=== PATIENT | female | born 1995 | race Caucasian/White ===

== ENCOUNTER 2020-07-29 07:40 | Inpatient (IN) ==
[2020-07-29] MEDS ORDERED: OXYTOCIN 30 UNITS/500 ML BAG IV PRN (08:11)
[2020-07-29] MEDS ORDERED: DINOPROSTONE 10 MG INSERT PV ONE (08:17)
--- NOTE | 2020-07-29 08:19 | History & Physical Report ---
Date of Service July 29, 2020 Assessment & Plan (1) Gestational diabetes mellitus (GDM): (2) Insulin-dependent diabetes mellitus during , antepartum: 25 yo at 39.2 wks with GDMA2 on insulin VS Afebrile Cervix unfavorable GBS + COVID -19 negative on 07/26 Plan to admit, monitor, labs, Cervical ripening with Cervidil, PCN for GBS (3) Obesity affecting in third trimester, antepartum: (4) GBS (group B Streptococcus carrier), +RV culture, currently : Admission and Anticipated Discharge Date Admission Date: July 29, 2020 History of Present Illness Primary Care Provider: NO PCP 25 yo at 39.2 wks with GDMA2, on insulin Here for scheduled IOL at term No complaints No ctxs/ LOF/VB +FM's Her has been complicated by 1) Obesity 2) GBS+ 3) GDMA2 Allergies Allergy/AdvReac Type Severity Reaction Status Date / Time No Known Allergies Allergy Unverified 07/29/20 08:46 Patient History Surgical History [place] teeth removed Social History Smoking Status: Never smoker Hx Alcohol Use: No Hx Substance Use: No Preferred Language: Tajik Beliefs That Will Affect Care: None marital status: Single Current Living Situation: Significant Other Current Living Situation Comment: lives with boyfriend Other Information That Helps Us Care for You: No Feels Safe at Home: Yes Safety Concerns: Feels Safe At This Time Assistive Devices: None [employer]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 STD Review of Systems All systems reviewed & are unremarkable except as noted in HPI & below Physical Exam Constitutional: WD/WN, vitals as above well developed NAD Gastrointestinal (Abdomen): normal bowel sounds, soft, nontender, no hepatosplenomegaly (Gravid, Luis 7-8 lb) Genitourinary: normal external appearance OB Exam Abdomen: + vertex Manual OB Exam: + cervical dilation 1 cm, + cervical effacement 30% and + station high OB Exam Monitor Tracing: + external uterine monitor used and + category I Results & Data ([place]) Vital Signs (Past 12 Hours) Vital Signs Pulse BP 07/29/20 07:48 94 H 144/69 H
[2020-07-29 08:34] LABS: Hematocrit (blood only) 36.7 % (37-47); Hemoglobin 12.9 g/dL (12.0-16.0); Mean Corpuscular Hemoglobin 30.1 pg (25-34); Mean Corpuscular Hgb Conc 35.1 g/dL (32-36); Mean Corpuscular Volume 85.7 fL (80-100); Platelet Count 197 K/uL (130-400); RDW Coefficient of Variation 13.6 % (11.5-14.5); Red Blood Count 4.28 M/uL (4.2-5.4); White Blood Count 10.32 K/uL (4.8-10.8)
[2020-07-29] MEDS ORDERED: PATIENT'S ALLERGY INFO NEEDS ENTERED SCH (08:45)
--- NOTE | 2020-07-29 08:50 | Obstetrical Progress Note ---
Date of Service July 29, 2020 Assessment & Plan Admission and Anticipated Discharge Date Admission Date: July 29, 2020 Subjective Cervidil is placed at posterior cervix. Results & Data ([facility]) Vital Signs (Past 12 Hours) Vital Signs Temp Pulse Resp BP 07/29/20 07:52 36.9 C 94 H 20 144/69 H 07/29/20 07:48 94 H 144/69 H
[2020-07-29 08:55] LABS: Albumin Level 2.7 gm/dl (3.4-5.0); BUN Creatinine Ratio 14.4 (10-20); Calcium 9.6 mg/dl (8.5-10.1); Creatinine Clr Calc Pharmacy 209.1 ml/min; Est GFR (African American) 146.6; Est GFR (Non-African American) 126.5; Potassium 3.6 mmol/L (3.5-5.1)
[2020-07-29] MEDS ORDERED: PENICILLIN G POTASSIUM 6 MU in DEXTROSE 5% 250 ML IV STA (08:55)
[2020-07-29 08:58] LABS: Albumin Globulin Ratio 0.7 (0.9-2); Bilirubin,Total 0.2 mg/dl (0.2-1); Globulin 3.8 gm/dl (2.5-4.0); Total Protein 6.5 gm/dl (6.4-8.2)
[2020-07-29] MEDS ORDERED: PHARMACY GLYCEMIC MGMT CONSULT PRN (09:22)
[2020-07-29] MEDS ORDERED: GLUCOSE 40% GEL 15 GM TUBE PO PRN (09:30)
[2020-07-29] MEDS ORDERED: CARBOHYDRATES FOR HYPOGLYCEMIA PO PRN (09:30)
[2020-07-29] MEDS ORDERED: GLUCOSE 10 TABS/TUBE PO PRN (09:30)
[2020-07-29] MEDS ORDERED: GLUCAGON FOR INJ 1 MG VIAL SQ PRN (09:30)
[2020-07-29] MEDS ORDERED: DEXTROSE 50% 50 ML SYRINGE IV PRN (09:30)
--- NOTE | 2020-07-29 09:34 | Pharmacy Report ---
Pharmacy Glycemic Short Note 2 - Date of Service July 29, 2020 - Glycemic Short BSG Results (Last 24 hours): 07/29/20 08:23 Glucose 119 H OUTPATIENT ANTIDIABETIC REGIMEN: * NPH 10 units SQ HS ASSESSMENT: * 25 yo at 39.2 wks with GDMA2, on insulin, here for scheduled IOL at term * Begin sliding scale with NovoLog and tighten as needed, continue NPH HS as needed PLAN FOR INPATIENT GLYCEMIC CONTROL: * Basal insulin - NPH * 10 units HS for BSG > 120mg/dl * Bolus insulin * NovoLog per scale Q4H * Goal Range: Low 70 mg/dL - High 120 mg/dL * BSG 120mg/dl or less - 0 units * BSG 121-140 - 1 unit * BSG 141-160 - 2 units * BSG 161-180 - 3 units * BSG 181-200 - 4 units * BSG > 200 - 4 units SQ and call [facility] - will give small IV dose based on BSG PLAN FOR DISCHARGE: * To be determined
[2020-07-29] MEDS: INSULIN ASPART 100 UNITS/ML 3 ML PEN SC SCH ×4 (10:24→22:58)
[2020-07-29] MEDS: LACTATED RINGER'S 1,000 ML IV PRN (17:08)
--- NOTE | 2020-07-29 20:02 | Obstetrical Progress Note ---
Date of Service July 29, 2020 Assessment & Plan Admission and Anticipated Discharge Date Admission Date: July 29, 2020 Subjective Patient is reevaluated She feels ctxs 1-3 min, pain is 5-6/10 No LOF/VB +FM FHR categ I [place]: ctxs 1 -2 min VE; 2cm/ 505/ -3, Cervidil is removed Lab Results 07/29/20 07/29/20 07/29/20 Range/Units 08:23 08:23 08:23 WBC 10.32 (4.8-10.8) K/uL RBC 4.28 (4.2-5.4) M/uL Hgb 12.9 (12.0-16.0) g/dL Hct 36.7 L (37-47) % MCV 85.7 (80-100) fL MCH 30.1 (25-34) pg MCHC 35.1 (32-36) g/dL RDW Std Deviation 43.0 (36.4-46.3) fL RDW Coeff of [place] 13.6 (11.5-14.5) % Plt Count 197 (130-400) K/uL MPV 11.0 H (7.4-10.4) fL Sodium 140 (136-145) mmol/L Potassium 3.6 (3.5-5.1) mmol/L Chloride 110 H (98-107) mmol/L Carbon Dioxide 22 (21-32) mmol/L Anion Gap 8.0 (3-11) BUN 9 (7-18) mg/dl Creatinine 0.59 L (0.6-1.2) mg/dl Est Cr Clr Drug Dosing 209.1 ml/min Est GFR ( Amer) 146.6 Est GFR (Non-Af Amer) 126.5 BUN/Creatinine Ratio 14.4 (10-20) Glucose 119 H (70-99) mg/dl Calcium 9.6 (8.5-10.1) mg/dl Total Bilirubin 0.2 (0.2-1) mg/dl AST 13 L (15-37) U/L ALT 14 (12-78) U/L Alkaline Phosphatase 110 (45-117) U/L Total Protein 6.5 (6.4-8.2) gm/dl Albumin 2.7 L (3.4-5.0) gm/dl Globulin 3.8 (2.5-4.0) gm/dl Albumin/Globulin Ratio 0.7 L (0.9-2) Blood Type A Positive Antibody Screen NEGATIVE Patient desires to eat dinner and continue with IOL Results & Data ([facility]) Vital Signs (Past 12 Hours) Vital Signs Temp Pulse Resp BP 07/29/20 19:17 75 167/87 H 07/29/20 19:16 83 190/102 H 07/29/20 15:16 36.8 C 65 20 131/79 07/29/20 11:50 36.7 C 83 20 141/82 H
[2020-07-29] MEDS: INSULIN HUMAN NPH SC SCH (21:15)
[2020-07-29] MEDS: BUTORPHANOL TARTRATE 1 MG/ML VIAL IV PRN (21:27)
[2020-07-29] MEDS: PENICILLIN G POTASSIUM 3 MU in DEXTROSE 5% 100 ML IV PRN (21:41)
[2020-07-30] MEDS ORDERED: OXYTOCIN 30 UNITS/500 ML BAG IV PRN (01:58)
[2020-07-30] MEDS: PENICILLIN G POTASSIUM 3 MU in DEXTROSE 5% 100 ML IV PRN ×6 (02:03→22:30)
[2020-07-30] MEDS: LACTATED RINGER'S 1,000 ML IV PRN ×4 (02:04→20:04)
[2020-07-30] MEDS: INSULIN ASPART 100 UNITS/ML 3 ML PEN SC SCH ×4 (02:19→18:12)
[2020-07-30] MEDS: BUTORPHANOL TARTRATE 1 MG/ML VIAL IV PRN (02:37)
[2020-07-30] MEDS ORDERED: fentaNYL 2MCG/ML ROPIVACAINE 1.25MG/ML 100 ML BAG EPI ONE (05:03)
[2020-07-30] MEDS ORDERED: BUPIVACAINE 0.25% 30 ML VIAL ONE ×4 (05:03→23:39)
[2020-07-30] MEDS ORDERED: SODIUM CHLORIDE 0.9% INJ 10 ML VIAL ONE ×4 (05:03→23:38)
[2020-07-30] MEDS ORDERED: fentaNYL citrate 100 MCG/2 ML VIAL ONE ×4 (05:03→23:39)
[2020-07-30] MEDS ORDERED: ePHEDrine sulfate 50 MG/ML AMP ONE (05:03)
[2020-07-30] MEDS ORDERED: NALOXONE HCL 0.4 MG/1 ML VIAL/CARP IV PRN (05:33)
[2020-07-30] MEDS ORDERED: ePHEDrine sulfate 50 MG/ML AMP IV PRN (05:33)
[2020-07-30] MEDS ORDERED: diphenhydrAMINE 50 MG/ML VIAL IV PRN (05:33)
[2020-07-30] MEDS ORDERED: ONDANSETRON INJ 2 MG/ML 2 ML VIAL IV PRN (05:33)
[2020-07-30] MEDS ORDERED: NALOXONE HCL 1 MG in SODIUM CHLORIDE 0.9% 1000ML 1,000 ML IV PRN (05:33)
--- NOTE | 2020-07-30 05:34 | Anesthesiology Consultation ---
Date of Service July 30, 2020 Assessment & Plan Chart Review Chart Review: Patient NOT seen in Pre Admission Testing and Acceptable Risk for Labor Epidural Consults Requested none ASA ASA2 Proposed Anesthesia Anesthesia Type: Labor Epidural and CSE Risk / Benefits Reviewed With: PT / POA / Parent / Guardian, Accepts Plan and Informed Consent Obtained History Height/Weight Height: 5 ft 8 in Weight: 133.356 kg Allergies Allergy/AdvReac Type Severity Reaction Status Date / Time No Known Allergies Allergy Unverified 07/29/20 08:46 Medications Home Medications Medication Instructions Recorded Confirmed Last Taken aspirin [Baby Aspirin] 81 mg PO DAILY 07/29/20 07/29/20 07/28/20 20:00 cetirizine [Zyrtec] 5 mg PO DAILY PRN 07/29/20 07/29/20 Unknown insulin NPH isoph U-100 human 10 unit SUBCUT HS 07/29/20 07/29/20 07/28/20 22:00 [Novolin N Flexpen] prenat.vits,ned,aci-xwrb-xjklo 1 tab PO DAILY 07/29/20 07/29/20 Unknown [ Vitamin] Active Medications Generic Name Dose Route Start Last Admin Trade Name Freq PRN Reason Stop Dose Admin Butorphanol Tartrate 1 mg 07/29/20 15:09 07/30/20 02:37 Butorphanol Tartrate 1 Mg/Ml Vial IV 08/28/20 15:08 1 mg Q3HWA PRN Administration Pain Penicillin G Potassium 3 mu/ 106 mls @ 100 mls/hr 07/29/20 09:00 07/30/20 03:10 Dextrose IV 08/08/20 08:59 Infused Q4H PRN Infusion Give until delivery Lactated Ringer's 1,000 mls @ 150 mls/hr 07/29/20 08:11 07/30/20 04:47 Lr IV 07/31/20 08:10 999 mls/hr .Q6H40M PRN Infusion L&D Protocol Protocol Oxytocin 30 units in 500 mls @ 6 mls/hr 07/30/20 01:58 07/30/20 04:45 Pitocin IV 08/01/20 01:57 0.36 units/hr .Q24H PRN 6 mls/hr Labor Induction/Augmentation Titration Protocol 0.36 UNITS/HR Insulin Aspart 0 units 07/29/20 18:30 07/30/20 02:19 Insulin Aspart 100 Units/Ml 3 Ml Pen SC 08/28/20 09:29 Not Given Q4H MARJORIE Protocol Insulin Human NPH 0 units 07/29/20 21:00 07/29/20 21:15 Insulin Human Nph SC 08/28/20 20:59 Not Given HS MARJORIE Protocol NPO Date Last Intake of Fluids: 07/30/20 Time Last Intake of Fluids: 04:00 Date Last Intake of Solids: 07/29/20 Time Last Intake of Solids: 20:00 Past Medical History Medical History Obesity Exercise / Class Metabolic Activity II 4-5 Yardwork/Stairs/Walk up hill Past Surgical History Surgical History [place] teeth removed Past Anesthesia History No Hx of Anesthesia Complications and No Family Hx of Anesthesia Complications History of PONV No Hx of PONV and No Hx of Motion Sickness Social History Smoking Status: Never smoker Hx Alcohol Use: No Hx Substance Use: No substance use type: does not use Review of Systems no chest pain or sob Physical Exam Vital Signs Last Vital Signs Temp 36.6 C 07/30/20 04:33 Pulse 63 07/30/20 05:28 Resp 18 07/30/20 04:33 BP 142/94 H 07/30/20 04:33 Pulse Ox 96 07/30/20 05:28 Constitutional + obese ENMT Mouth: no TMJ abnormality Thyromental Distance: > or= 3.5 Finger Breadths Mallampati Class: II Neck normal visual inspection Respiratory normal respiratory effort Auscultation: lungs clear to auscultation bilaterally Cardiovascular Rate/Rhythm: regular rate and regular rhythm Musculoskeletal Spine: normal cervical ROM Neurologic moves all extremities Psychiatric Orientation: alert and oriented x 3 Testing Laboratory Results 07/29/20 08:23 07/29/20 08:23 Blood Type A Positive 07/29/20 08:23 Antibody Screen NEGATIVE 07/29/20 08:23
--- NOTE | 2020-07-30 13:30 | Pharmacy Report ---
Pharmacy Glycemic Short Note 2 - Date of Service July 30, 2020 - Glycemic Short BSG Results (Last 24 hours): 07/30/20 12:01 POC Glucose 83 OUTPATIENT ANTIDIABETIC REGIMEN: * NPH 10 units SQ HS ASSESSMENT: 07/30/20 * Patient has required 1 unit of insulin over past 24 hours, decrease checks to q6h 07/29/20 * 25 yo at 39.2 wks with GDMA2, on insulin, here for scheduled IOL at term * Begin sliding scale with NovoLog and tighten as needed, continue NPH HS as needed PLAN FOR INPATIENT GLYCEMIC CONTROL: * Basal insulin - NPH * 10 units HS for BSG > 120mg/dl * Bolus insulin * NovoLog per scale Q6H * Goal Range: Low 70 mg/dL - High 120 mg/dL * BSG 120mg/dl or less - 0 units * BSG 121-140 - 1 unit * BSG 141-160 - 2 units * BSG 161-180 - 3 units * BSG 181-200 - 4 units * BSG > 200 - 4 units SQ and call [facility] - will give small IV dose based on BSG PLAN FOR DISCHARGE: * To be determined
--- NOTE | 2020-07-30 13:45 | Obstetrical Progress Note ---
Date of Service July 30, 2020 Assessment & Plan Admission and Anticipated Discharge Date Admission Date: July 29, 2020 Physical Exam Genitourinary: OB Exam Abdomen: + regular contractions Manual OB Exam: + cervical dilation 3 cm, + cervical effacement 50%, + station and + amniotic fluid clear OB Exam Monitor Tracing: + external FHT monitor used, + external uterine monitor used and + category I AROM with Amni-hook clear fluid Results & Data ([facility]) Vital Signs (Past 12 Hours) Vital Signs Temp Pulse Resp BP Pulse Ox 07/30/20 13:38 93 H 99 07/30/20 13:33 75 97 07/30/20 13:30 71 134/81 07/30/20 13:28 74 97 07/30/20 13:23 78 97 07/30/20 13:18 69 97 07/30/20 13:15 67 129/70 07/30/20 13:13 73 96 07/30/20 13:08 65 97 07/30/20 13:03 72 97 07/30/20 12:59 69 147/69 H 07/30/20 12:58 72 97 07/30/20 12:53 65 97 07/30/20 12:48 64 95 07/30/20 12:44 72 140/76 07/30/20 12:43 76 98 07/30/20 12:38 78 96 07/30/20 12:33 73 96 07/30/20 12:30 72 138/73 07/30/20 12:28 79 96 07/30/20 12:23 72 96 07/30/20 12:18 71 95 07/30/20 12:14 69 136/72 07/30/20 12:13 64 95 07/30/20 12:08 63 95 07/30/20 12:03 65 96 07/30/20 12:00 20 07/30/20 11:59 73 142/79 H 07/30/20 11:58 69 97 07/30/20 11:53 64 95 07/30/20 11:48 65 97 07/30/20 11:45 62 140/79 07/30/20 11:43 79 97 07/30/20 11:38 74 96 07/30/20 11:33 66 96 07/30/20 11:30 20 07/30/20 11:29 69 118/58 L 07/30/20 11:28 72 95 07/30/20 11:23 66 96 07/30/20 11:18 79 97 07/30/20 11:14 74 117/61 07/30/20 11:13 72 96 07/30/20 11:08 72 97 07/30/20 11:03 75 97 07/30/20 10:59 67 110/61 07/30/20 10:58 36.7 C 68 18 97 07/30/20 10:53 73 96 07/30/20 10:48 68 97 07/30/20 10:44 67 139/64 07/30/20 10:43 87 98 07/30/20 10:38 70 98 07/30/20 10:33 68 96 07/30/20 10:30 20 07/30/20 10:29 60 128/61 07/30/20 10:28 67 95 07/30/20 10:23 62 95 07/30/20 10:18 76 97 07/30/20 10:14 67 126/68 07/30/20 10:13 66 96 07/30/20 10:08 66 97 07/30/20 10:03 74 99 07/30/20 10:00 18 07/30/20 09:59 70 131/62 07/30/20 09:58 70 98 07/30/20 09:53 67 98 07/30/20 09:48 67 98 07/30/20 09:44 70 123/58 L 07/30/20 09:43 74 96 07/30/20 09:38 69 97 07/30/20 09:33 68 98 07/30/20 09:30 37.2 C 18 07/30/20 09:29 75 122/69 07/30/20 09:28 78 98 07/30/20 09:23 74 97 07/30/20 09:18 81 98 07/30/20 09:14 71 125/66 07/30/20 09:13 71 98 07/30/20 09:08 78 97 07/30/20 09:03 68 97 07/30/20 09:00 65 20 132/75 07/30/20 08:58 72 97 07/30/20 08:53 69 98 07/30/20 08:48 66 98 07/30/20 08:46 61 130/74 07/30/20 08:43 70 98 07/30/20 08:38 67 99 07/30/20 08:33 84 99 07/30/20 08:30 18 07/30/20 08:29 58 L 111/65 07/30/20 08:28 59 L 98 07/30/20 08:23 61 97 07/30/20 08:18 80 98 07/30/20 08:14 62 118/66 07/30/20 08:13 60 97 07/30/20 08:08 61 97 07/30/20 08:03 66 97 07/30/20 08:00 18 07/30/20 07:59 66 119/66 07/30/20 07:58 68 97 07/30/20 07:53 59 L 96 07/30/20 07:48 61 97 07/30/20 07:44 61 118/67 07/30/20 07:43 59 L 97 07/30/20 07:38 61 97 07/30/20 07:33 64 99 07/30/20 07:31 64 122/66 07/30/20 07:30 69 20 129/71 07/30/20 07:28 67 100 07/30/20 07:23 73 99 07/30/20 07:18 72 99 07/30/20 07:15 60 125/68 07/30/20 07:13 68 98 07/30/20 07:08 72 99 07/30/20 07:03 71 100 07/30/20 07:00 36.7 C 18 07/30/20 06:59 62 114/62 07/30/20 06:58 59 L 98 07/30/20 06:53 60 97 07/30/20 06:48 56 L 98 07/30/20 06:44 56 L 113/59 L 07/30/20 06:43 59 L 96 07/30/20 06:38 58 L 97 07/30/20 06:33 58 L 99 07/30/20 06:30 18 07/30/20 06:29 57 L 115/65 07/30/20 06:28 62 99 07/30/20 06:23 61 99 07/30/20 06:18 66 98 07/30/20 06:14 59 L 123/71 07/30/20 06:13 67 100 07/30/20 06:09 65 111/61 07/30/20 06:08 74 98 07/30/20 06:03 68 121/70 98 07/30/20 06:01 80 125/71 07/30/20 05:59 73 123/78 07/30/20 05:58 72 99 07/30/20 05:57 74 122/80 07/30/20 05:56 75 124/88 07/30/20 05:53 78 99 07/30/20 05:51 75 170/93 H 07/30/20 05:48 95 H 100 07/30/20 05:43 88 100 07/30/20 05:38 85 100 07/30/20 05:33 70 99 07/30/20 05:28 63 96 07/30/20 05:23 66 97 07/30/20 05:18 68 98 07/30/20 05:13 65 99 07/30/20 05:08 66 99 07/30/20 05:03 66 97 07/30/20 04:58 75 98 07/30/20 04:33 36.6 C 61 18 142/94 H 07/30/20 03:37 72 146/86 H 07/30/20 03:28 67 96 07/30/20 03:23 72 96 07/30/20 03:18 69 95 07/30/20 03:13 69 96 07/30/20 03:08 68 96 07/30/20 03:03 70 94 07/30/20 02:58 74 94 07/30/20 02:53 84 94 07/30/20 02:48 79 96 07/30/20 02:43 77 92 07/30/20 02:40 75 93 07/30/20 02:38 78 96 07/30/20 02:33 81 133/78
[2020-07-30] MEDS: fentaNYL 2MCG/ML ROPIVACAINE 1.25MG/ML 100 ML BAG EPI PRN ×3 (13:50→23:23)
[2020-07-30] MEDS ORDERED: CETIRIZINE HCL 10 MG TABLET PO ONE (14:34)
--- NOTE | 2020-07-30 19:00 | Communication Note ---
Date of Service: July 30, 2020 Pt. c/o pain 09/09;At 1855 Pt epidural cath. was bolused w/ 12 ml 0.17% bupivacaine + 100 mcgs fentanyl, w/ incremental aspirations and injections; Vital signs are stable.
[2020-07-30] MEDS ORDERED: NURSING L&D Epidural Breakthrough Pain Update ONE (20:50)
--- NOTE | 2020-07-30 21:34 | Communication Note ---
Date of Service: July 30, 2020 Pt.c/o 01/09 pain. At 2128 Pt. epidural cath. bolused w/ 12 ml 0.17% bupivacaine + 100 mcgs fentanyl using incremental aspirations and injections. Vital signs are stable.
[2020-07-30] MEDS: INSULIN HUMAN NPH SC SCH (21:36)
--- NOTE | 2020-07-30 22:26 | Obstetrical Progress Note ---
Date of Service July 30, 2020 Assessment & Plan Admission and Anticipated Discharge Date Admission Date: July 29, 2020 Physical Exam Genitourinary: Manual OB Exam: + cervical dilation 5 cm, + cervical effacement 60%, + station -2 and + amniotic fluid OB Exam Monitor Tracing: + external FHT monitor used, + external uterine monitor used, + category I and + normal FHT variability Will increase Oxytocin to augment contractions Results & Data ([facility]) Vital Signs (Past 12 Hours) Vital Signs Temp Pulse Resp BP Pulse Ox 07/30/20 22:18 88 98 07/30/20 22:15 77 144/64 H 07/30/20 22:13 74 96 07/30/20 22:10 78 149/62 H 07/30/20 22:08 71 97 07/30/20 22:05 74 159/68 H 07/30/20 22:03 72 96 07/30/20 22:00 74 169/72 H 07/30/20 21:58 74 96 07/30/20 21:55 77 164/70 H 07/30/20 21:53 85 98 07/30/20 21:50 90 174/92 H 07/30/20 21:48 88 97 07/30/20 21:45 75 127/61 07/30/20 21:43 80 98 07/30/20 21:42 75 132/62 07/30/20 21:38 76 98 07/30/20 21:35 82 141/64 H 07/30/20 21:33 80 94 07/30/20 21:29 79 155/72 H 07/30/20 21:28 84 98 07/30/20 21:27 88 151/76 H 07/30/20 21:23 95 H 99 07/30/20 21:18 83 98 07/30/20 21:13 89 98 07/30/20 21:12 76 144/74 H 07/30/20 21:08 77 96 07/30/20 21:06 37.0 C 18 07/30/20 21:03 74 98 07/30/20 20:59 69 145/73 H 07/30/20 20:58 82 97 07/30/20 20:53 72 95 07/30/20 20:48 77 97 07/30/20 20:43 73 146/67 H 98 07/30/20 20:38 74 97 07/30/20 20:33 77 98 07/30/20 20:28 91 H 98 07/30/20 20:27 80 154/72 H 07/30/20 20:23 78 97 07/30/20 20:18 79 99 07/30/20 20:13 74 149/69 H 96 07/30/20 20:08 70 97 07/30/20 20:03 75 97 07/30/20 19:59 107 H 122/79 07/30/20 19:58 93 H 97 07/30/20 19:53 78 99 07/30/20 19:48 94 H 98 07/30/20 19:43 88 98 07/30/20 19:42 72 141/73 H 07/30/20 19:38 64 97 07/30/20 19:33 93 H 97 07/30/20 19:28 82 97 07/30/20 19:27 88 141/83 H 07/30/20 19:23 81 97 07/30/20 19:18 83 97 07/30/20 19:14 37.2 C 18 07/30/20 19:13 74 96 07/30/20 19:08 86 97 07/30/20 19:07 88 143/78 H 07/30/20 19:03 74 97 07/30/20 19:02 69 147/73 H 07/30/20 18:58 85 97 07/30/20 18:57 89 145/82 H 07/30/20 18:53 104 H 98 07/30/20 18:48 74 97 07/30/20 18:44 67 143/70 H 07/30/20 18:43 70 97 07/30/20 18:38 79 97 07/30/20 18:33 81 98 07/30/20 18:30 22 07/30/20 18:29 81 145/78 H 07/30/20 18:28 76 97 07/30/20 18:23 77 96 07/30/20 18:18 78 97 07/30/20 18:14 88 137/73 07/30/20 18:13 65 96 07/30/20 18:08 80 98 07/30/20 18:03 73 98 07/30/20 18:00 18 07/30/20 17:59 75 135/71 07/30/20 17:58 74 96 04/30/21 17:53 86 98 07/30/20 17:48 77 98 07/30/20 17:46 70 137/73 07/30/20 17:43 77 96 07/30/20 17:38 70 97 07/30/20 17:33 68 98 07/30/20 17:31 18 07/30/20 17:29 71 150/73 H 07/30/20 17:28 75 97 07/30/20 17:23 75 98 07/30/20 17:18 74 97 07/30/20 17:14 71 136/67 07/30/20 17:13 72 97 07/30/20 17:08 115 H 99 07/30/20 17:03 87 100 07/30/20 17:02 37.0 C 18 07/30/20 16:59 79 146/87 H 07/30/20 16:58 74 99 07/30/20 16:53 85 96 07/30/20 16:48 75 95 07/30/20 16:44 76 140/85 07/30/20 16:43 72 95 07/30/20 16:38 100 H 95 07/30/20 16:33 72 95 07/30/20 16:30 18 07/30/20 16:29 68 137/75 07/30/20 16:28 65 95 07/30/20 16:23 69 95 07/30/20 16:18 69 95 07/30/20 16:14 65 133/75 07/30/20 16:13 65 96 07/30/20 16:08 68 99 07/30/20 16:03 91 H 98 07/30/20 16:00 18 07/30/20 15:59 62 127/70 07/30/20 15:58 64 95 07/30/20 15:53 72 96 07/30/20 15:48 72 95 07/30/20 15:44 79 136/77 07/30/20 15:43 71 97 07/30/20 15:38 78 97 07/30/20 15:33 70 97 07/30/20 15:30 20 07/30/20 15:29 62 134/70 07/30/20 15:28 72 96 07/30/20 15:23 67 99 07/30/20 15:18 73 97 07/30/20 15:15 64 133/73 07/30/20 15:13 76 97 07/30/20 15:08 71 97 07/30/20 15:03 71 96 07/30/20 15:00 37.1 C 65 18 134/73 07/30/20 14:58 77 97 07/30/20 14:53 70 97 07/30/20 14:48 74 98 07/30/20 14:44 71 139/65 07/30/20 14:43 72 97 07/30/20 14:38 71 97 07/30/20 14:33 72 97 07/30/20 14:30 20 07/30/20 14:29 83 150/81 H 07/30/20 14:28 88 97 07/30/20 14:23 72 98 07/30/20 14:18 70 98 07/30/20 14:15 70 123/64 07/30/20 14:13 70 97 07/30/20 14:08 74 98 07/30/20 14:03 72 97 07/30/20 14:01 75 131/76 07/30/20 14:00 18 07/30/20 13:58 96 H 98 07/30/20 13:53 83 97 07/30/20 13:48 82 98 07/30/20 13:45 72 112/55 L 07/30/20 13:43 95 H 98 07/30/20 13:38 93 H 99 07/30/20 13:33 75 97 07/30/20 13:30 71 16 134/81 07/30/20 13:28 74 97 07/30/20 13:23 78 97 07/30/20 13:18 69 97 07/30/20 13:15 67 129/70 07/30/20 13:13 73 96 07/30/20 13:08 65 97 07/30/20 13:03 72 97 07/30/20 13:00 18 07/30/20 12:59 69 147/69 H 07/30/20 12:58 72 97 07/30/20 12:53 65 97 07/30/20 12:50 36.9 C 07/30/20 12:48 64 95 07/30/20 12:44 72 140/76 07/30/20 12:43 76 98 07/30/20 12:38 78 96 07/30/20 12:33 73 96 07/30/20 12:30 72 20 138/73 07/30/20 12:28 79 96 07/30/20 12:23 72 96 07/30/20 12:18 71 95 07/30/20 12:14 69 136/72 07/30/20 12:13 64 95 07/30/20 12:08 63 95 07/30/20 12:03 65 96 07/30/20 12:00 20 07/30/20 11:59 73 142/79 H 07/30/20 11:58 69 97 07/30/20 11:53 64 95 07/30/20 11:48 65 97 07/30/20 11:45 62 140/79 07/30/20 11:43 79 97 07/30/20 11:38 74 96 07/30/20 11:33 66 96 07/30/20 11:30 20 07/30/20 11:29 69 118/58 L 07/30/20 11:28 72 95 07/30/20 11:23 66 96 07/30/20 11:18 79 97 07/30/20 11:14 74 117/61 07/30/20 11:13 72 96 07/30/20 11:08 72 97 07/30/20 11:03 75 97 07/30/20 10:59 67 110/61 07/30/20 10:58 36.7 C 68 18 97 07/30/20 10:53 73 96 07/30/20 10:48 68 97 07/30/20 10:44 67 139/64 07/30/20 10:43 87 98 07/30/20 10:38 70 98 07/30/20 10:33 68 96 07/30/20 10:30 20 07/30/20 10:29 60 128/61 07/30/20 10:28 67 95
--- NOTE | 2020-07-30 23:48 | Communication Note ---
Date of Service: July 30, 2020 Pt c/o 01/09 pain. At 2344, Pt. epidural cath. was bolused w/ 12 ml 0.17% bupivacaine + 100 mcgs fentanyl, using incremental aspirations and injections.Vital signs stable.
[2020-07-31] MEDS: INSULIN ASPART 100 UNITS/ML 3 ML PEN SC SCH
[2020-07-31] MEDS: OXYTOCIN 30 UNITS/500 ML BAG IV PRN ×2 (02:42→03:41)
--- NOTE | 2020-07-31 02:57 | Delivery Summary ---
Vaginal Delivery Summary Date of Service July 31, 2020 Vaginal Delivery Summary Delivery Note live female DENNIS over intact perineum with delayed cord clamping and Apgars 8/9 weight pending. Cord blood obtained followed by spontaneous delivery of intact placenta. No tears. EBL 150 ml. Final sponge and instrument count are correct. Mom and baby stable.
[2020-07-31] MEDS ORDERED: bisacodyL 10 MG SUPP PR PRN (03:12)
[2020-07-31] MEDS ORDERED: BENZOCAINE 20% AER SPR 82.5 GM CAN EXT PRN (03:12)
[2020-07-31] MEDS ORDERED: CETIRIZINE 5 MG PO PRN (03:12)
[2020-07-31] MEDS ORDERED: ACETAMINOPHEN 325 MG TAB PO PRN (03:12)
[2020-07-31] MEDS ORDERED: HYDROCORTISONE ACETATE 25 MG SUPP PR PRN (03:12)
[2020-07-31] MEDS ORDERED: SUPERCREAM 0.870% 15 GM JAR EXT PRN (03:12)
[2020-07-31] MEDS ORDERED: DIPHTHERIA/TETANUS/PERTUSSIS 0.5 ML SYR/VIAL IM ONE (03:12)
[2020-07-31] MEDS ORDERED: CETIRIZINE HCL 10 MG TABLET PO PRN (03:26)
[2020-07-31] MEDS: IBUPROFEN 600 MG TAB PO PRN ×3 (03:35→17:51)
[2020-07-31] MEDS ORDERED: NON-FORMULARY MEDICATION (Prenat.Vits,Cal,Min-Iron-Folic Tablet) PO SCH (09:00)
[2020-07-31] MEDS ORDERED: ASPIRIN 81 MG CHEW PO SCH (09:00)
--- NOTE | 2020-07-31 09:16 | Anesthesia Procedure Note ---
Date of Service July 31, 2020 Anesthesia Post Epidural Note Vital Signs Vital Signs: Temp Pulse Resp BP Pulse Ox 36.7 C 88 18 121/58 L 94 07/31/20 04:55 07/31/20 06:03 07/31/20 04:55 07/31/20 05:25 07/31/20 06:03 Pain Intensity Back: Pain Intensity: 4 Notes Mental Status: alert / awake / arousable Nausea / Vomiting: adequately controlled Pain: adequately controlled Airway Patency, RR, SpO2: stable & adequate BP & HR: stable & adequate Hydration State: stable & adequate Neuraxial Anesthesia: was administered and sensory block is resolving Anesthetic Complications: no major complications apparent Epidural: Removed without complications and With tip intact
[2020-07-31] MEDS: DOCUSATE SODIUM 100 MG CAP PO SCH ×2 (09:32→20:43)
[2020-07-31] MEDS: PRENATAL VITAMIN 1 TAB PO SCH (09:32)
[2020-07-31] MEDS: FERROUS SULFATE 325 MG TAB PO SCH (09:32)
[2020-07-31] MEDS: CETIRIZINE HCL 10 MG TABLET PO SCH (09:34)
[2020-08-01 06:43] LABS: Hematocrit (blood only) 28.7 % (37-47); Hemoglobin 9.8 g/dL (12.0-16.0); Mean Corpuscular Hemoglobin 29.8 pg (25-34); Mean Corpuscular Hgb Conc 34.1 g/dL (32-36); Mean Corpuscular Volume 87.2 fL (80-100); Mean Platelet Volume 10.9 fL (7.4-10.4); Platelet Count 166 K/uL (130-400); RDW Coefficient of Variation 13.7 % (11.5-14.5); RDW Standard Deviation 44.3 fL (36.4-46.3); Red Blood Count 3.29 M/uL (4.2-5.4); White Blood Count 11.18 K/uL (4.8-10.8)
[2020-08-01] MEDS: PRENATAL VITAMIN 1 TAB PO SCH (09:00)
[2020-08-01] MEDS: FERROUS SULFATE 325 MG TAB PO SCH (09:00)
[2020-08-01] MEDS: DOCUSATE SODIUM 100 MG CAP PO SCH (09:00)
[2020-08-01] MEDS: IBUPROFEN 600 MG TAB PO PRN (09:00)
[2020-08-01] MEDS: CETIRIZINE HCL 10 MG TABLET PO SCH (09:00)
--- NOTE | 2020-08-01 10:13 | Obstetrical Progress Note ---
Date of Service August 01, 2020 Assessment & Plan Admission and Anticipated Discharge Date Admission Date: July 29, 2020 Subjective Patient is seen and examined. She feels well, no complaints. Desires d/c today, feels ready Ambulating without dizziness Voiding without difficulty Tolerating regular diet with out N&V Bleeding is minimal No fever/ chills/ CP/ SOB/ N&V/ Leg pain Breast feeding without problems Vital Signs Temp Pulse Pulse Resp BP BP Pulse Ox 08/01/20 00:50 36.8 C 71 16 109/64 07/31/20 20:05 36.8 C 85 85 18 123/81 123/81 07/31/20 15:36 36.8 C 81 15 117/78 07/31/20 11:58 36.7 C 80 18 121/76 98 Lab Results 07/29/20 07/29/20 07/29/20 Range/Units 08:23 08:23 08:23 WBC 10.32 (4.8-10.8) K/uL RBC 4.28 (4.2-5.4) M/uL Hgb 12.9 (12.0-16.0) g/dL Hct 36.7 L (37-47) % MCV 85.7 (80-100) fL MCH 30.1 (25-34) pg MCHC 35.1 (32-36) g/dL RDW Std Deviation 43.0 (36.4-46.3) fL RDW Coeff of Gila 13.6 (11.5-14.5) % Plt Count 197 (130-400) K/uL MPV 11.0 H (7.4-10.4) fL Sodium 140 (136-145) mmol/L Potassium 3.6 (3.5-5.1) mmol/L Chloride 110 H (98-107) mmol/L Carbon Dioxide 22 (21-32) mmol/L Anion Gap 8.0 (3-11) BUN 9 (7-18) mg/dl Creatinine 0.59 L (0.6-1.2) mg/dl Est Cr Clr Drug Dosing 209.1 ml/min Est GFR ( Amer) 146.6 Est GFR (Non-Af Amer) 126.5 BUN/Creatinine Ratio 14.4 (10-20) Glucose 119 H (70-99) mg/dl POC Glucose (70-99) mg/dl Calcium 9.6 (8.5-10.1) mg/dl Total Bilirubin 0.2 (0.2-1) mg/dl AST 13 L (15-37) U/L ALT 14 (12-78) U/L Alkaline Phosphatase 110 (45-117) U/L Total Protein 6.5 (6.4-8.2) gm/dl Albumin 2.7 L (3.4-5.0) gm/dl Globulin 3.8 (2.5-4.0) gm/dl Albumin/Globulin Ratio 0.7 L (0.9-2) Blood Type A Positive Antibody Screen NEGATIVE 07/30/20 07/30/20 07/30/20 Range/Units 12:01 18:06 21:03 WBC (4.8-10.8) K/uL RBC (4.2-5.4) M/uL Hgb (12.0-16.0) g/dL Hct (37-47) % MCV (80-100) fL MCH (25-34) pg MCHC (32-36) g/dL RDW Std Deviation (36.4-46.3) fL RDW Coeff of Gila (11.5-14.5) % Plt Count (130-400) K/uL MPV (7.4-10.4) fL Sodium (136-145) mmol/L Potassium (3.5-5.1) mmol/L Chloride (98-107) mmol/L Carbon Dioxide (21-32) mmol/L Anion Gap (3-11) BUN (7-18) mg/dl Creatinine (0.6-1.2) mg/dl Est Cr Clr Drug Dosing ml/min Est GFR ( Amer) Est GFR (Non-Af Amer) BUN/Creatinine Ratio (10-20) Glucose (70-99) mg/dl POC Glucose 83 83 79 (70-99) mg/dl Calcium (8.5-10.1) mg/dl Total Bilirubin (0.2-1) mg/dl AST (15-37) U/L ALT (12-78) U/L Alkaline Phosphatase (45-117) U/L Total Protein (6.4-8.2) gm/dl Albumin (3.4-5.0) gm/dl Globulin (2.5-4.0) gm/dl Albumin/Globulin Ratio (0.9-2) Blood Type Antibody Screen 07/31/20 08/01/20 Range/Units 00:01 06:23 WBC 11.18 H (4.8-10.8) K/uL RBC 3.29 L (4.2-5.4) M/uL Hgb 9.8 L (12.0-16.0) g/dL Hct 28.7 L (37-47) % MCV 87.2 (80-100) fL MCH 29.8 (25-34) pg MCHC 34.1 (32-36) g/dL RDW Std Deviation 44.3 (36.4-46.3) fL RDW Coeff of Gila 13.7 (11.5-14.5) % Plt Count 166 (130-400) K/uL MPV 10.9 H (7.4-10.4) fL Sodium (136-145) mmol/L Potassium (3.5-5.1) mmol/L Chloride (98-107) mmol/L Carbon Dioxide (21-32) mmol/L Anion Gap (3-11) BUN (7-18) mg/dl Creatinine (0.6-1.2) mg/dl Est Cr Clr Drug Dosing ml/min Est GFR ( Amer) Est GFR (Non-Af Amer) BUN/Creatinine Ratio (10-20) Glucose (70-99) mg/dl POC Glucose 92 (70-99) mg/dl Calcium (8.5-10.1) mg/dl Total Bilirubin (0.2-1) mg/dl AST (15-37) U/L ALT (12-78) U/L Alkaline Phosphatase (45-117) U/L Total Protein (6.4-8.2) gm/dl Albumin (3.4-5.0) gm/dl Globulin (2.5-4.0) gm/dl Albumin/Globulin Ratio (0.9-2) Blood Type Antibody Screen PE: General: Alert, orientedx3, NAD Abd: soft, NT, fundus firm, below Umbilicus Perineum intact, Lochia rubra minimal Ext; NT, no edema AP: 25 yo s/p , ppd# 1 VSS Afebrile doing well Continue routine care All questions were answered D/C home , f/u in office Discussed when to call Results & Data ([facility] [place]) Vital Signs (Past 12 Hours) Vital Signs Temp Pulse Resp BP 08/01/20 00:50 36.8 C 71 16 109/64
[2020-08-01] MEDS ORDERED: bisacodyL 5 MG TABEC PO SCH (20:00)
== END 2020-08-01 13:30 | disposition home or self-care (01) | DRG 807 ==
LOC: 4S1 07:40 → MERGE 07:40 → 4S2 07-31 06:20